=== PATIENT | male | born 1980 | race Caucasian/White ===

== ENCOUNTER 2016-11-15 10:00 | Day surgery (SDC) | payer OTHER ==
[~2016-11-15] VITALS: Ht 188 cm; Wt 77.1 kg
[~2016-11-15 10:00] MED LIST: EXTRA STRENGTH500 M1 PO; OMEPRAZOLE20 MG PO; ZANTAC150 MG PO
[2016-11-15 10:22] VITALS: BP 145/85
[2016-11-15] MEDS ORDERED: PERCOCET 5/31 TABLET PO (14:48)
[2016-11-15] MEDS ORDERED: COLACE100 MG PO (14:48)
[2016-11-15 15:43] VITALS: BP 127/85
[2016-11-15 16:58] VITALS: BP 114/80
== END 2016-11-15 17:22 | disposition home or self-care (01) ==
LOC: SDC 10:00
PROC: 0YUA4JZ Supplement Bilateral Inguinal Region with Synthetic Substitute, Percutaneous Endoscopic Approach (ICD-10-PCS; principal; 2016-11-15)
DX: K40.20 Bilateral inguinal hernia, without obstruction or gangrene, not specified as recurrent (principal); F17.200 Nicotine dependence, unspecified, uncomplicated
CPT/HCPCS: 88305; C1727; C1781; J0330; J0690; J1170; J1885; J2175; J2250; J2405; J3010